=== PATIENT | male | born 1945 | race Caucasian/White ===

== ENCOUNTER 2016-11-11 23:35 | Emergency (ER) | payer MEDICARE, OTHER ==
[2016-11-12 00:25] VITALS: BP 160/82
--- NOTE | 2016-11-12 00:54 | ED ---
Genia Hector Salem, scribed for Adam Zarco MD on 11/12/16 at 0053 . Hypertension - HPI Summary HPI Summary: Patient is a 71 y/o M from [place] who presents to the ED with high BP since earlier today. He states that he woke up this morning with a BUCKLEY and decided to check BP. He reports fluctuations in BP stating that it would go from 150/74 to 179/110 the next minute. Pt is on HTN medication and states that he had his medication altered by his physician (in [place]) 3 weeks ago. Pt is expected to leave [place] tomorrow. - History of Current Complaint Chief Complaint: EDGeneral Stated Complaint: HIGH BLOOD PRESSURE Time Seen by Provider: 11/12/16 00:17 Hx Obtained From: Patient Onset/Duration: Started Hours Ago, Atraumatic, Still Present Timing: Intermittent, Lasting Days Reported Blood Pressure Prior To Arrival: 150/74 to 179/110 Aggravating Factor(s): Nothing Alleviating Factor(s): Nothing Associated Signs & Symptoms: Negative - Allergies/Home Medications Allergies/Adverse Reactions: Allergies Allergy/AdvReac Type Severity Reaction Status Date / Time Iodine Allergy Hives Verified 11/11/16 23:47 contrast dye Allergy Hives/Diff. Uncoded 11/11/16 23:49 Breathing/I tching PMH/Surg Hx/FS Hx/Imm Hx Cardiovascular History: Reports: Hx Hypertension Infectious Disease History: Yes Infectious Disease History: Denies: Traveled Outside the [place] in Last 30 Days - Family History Known Family History: Positive: Hypertension - Social History Lives: With Family Review of Systems Negative: Fever Positive: Other - High BP. Positive: Headache All Other Systems Reviewed And Are Negative: Yes Physical Exam Triage Information Reviewed: Yes Vital Signs On Initial Exam: Initial Vitals Temp Pulse Resp BP Pulse Ox 97.7 F 62 16 154/90 96 11/11/16 23:40 11/11/16 23:40 11/11/16 23:40 11/11/16 23:40 11/11/16 23:40 Vital Signs Reviewed: Yes Appearance: Positive: Well-Appearing, No Pain Distress Skin: Positive: Warm Head/Face: Positive: Normal Head/Face Inspection Eyes: Positive: EOMI, MAGO ENT: Positive: Hearing grossly normal Neck: Positive: Supple Respiratory/Lung Sounds: Positive: Clear to Auscultation, Breath Sounds Present Cardiovascular: Positive: RRR. Negative: Murmur Abdomen Description: Positive: Nontender, Soft Bowel Sounds: Positive: Present Musculoskeletal: Positive: Strength/ROM Intact. Negative: Edema Left, Edema Right Neurological: Positive: Alert, Oriented to Person Place, Time Psychiatric: Positive: Affect/Mood Appropriate Diagnostics - Vital Signs Vital Signs Temp Pulse Resp BP Pulse Ox 11/12/16 00:20 97.8 F 53 18 160/82 96 11/11/16 23:40 97.7 F 62 16 154/90 96 - Laboratory Result Diagrams: 11/12/16 00:48 11/12/16 00:48 Lab Statement: Any lab studies that have been ordered have been reviewed, and results considered in the medical decision making process. - EKG 0057 EKG Interpretation: Sinus bradycardia @ 48 bpm. Poor quality tracing. Hypertension Course/Dx - Course Course Of Treatment: 71 y/o M presents with high BP since earlier today. He states that he woke up this morning with a BUCKLEY and decided to check BP. He reports fluctuations in BP stating that it would go from 150/74 to 179/110 the next minute. Pt is on HTN medication and states that he had his medication altered by his physician (in [place]) 3 weeks ago. EKG shows Sinus bradycardia @ 48 bpm and poor quality tracing. Pt will be DC'd to follow up. - Diagnoses Provider Diagnoses: HTN (hypertension) Discharge - Discharge Plan Condition: Stable Disposition: HOME Patient Education Materials: Hypertension (ED) Referrals: [facility] PHYSICIAN REFERRAL [Outside] Additional Instructions: Please follow up with [facility] referral or your primary care provider. The documentation as recorded by the Genia valera Salem accurately reflects the service I personally performed and the decisions made by , Adam Zarco MD.
[2016-11-12 00:57] LABS: Hematocrit 45 % (42-52); Hemoglobin 14.9 g/dl (14.0-18.0); Mean Corpuscular HGB Conc 33 g/dl (31-36); Mean Corpuscular Hemoglobin 30 pg (27-31); Mean Corpuscular Volume 91 fL (80-94); Mean Platelet Volume 9 um3 (7.4-10.4); Red Blood Count 4.97 10^6/ul (4.0-5.4); Red Cell Distribution Width 14 % (10.5-15); White Blood Count 5.9 10^3/ul (3.5-10.8)
[2016-11-12 01:28] LABS: Albumin 4.1 g/dL (3.2-5.2); Calcium 8.9 mg/dL (8.6-10.3); EGFR African American 83.1 (>60); EGFR Non-African American 64.6 (>60); Globulin 2.6 g/dL (2-4); Potassium 3.7 mmol/L (3.5-5.0); Total Bilirubin 0.4 mg/dL (0.2-1.0); Total Protein 6.7 g/dL (6.4-8.9)
== END 2016-11-12 02:26 | disposition home or self-care (01) ==
LOC: ED 23:35
DX: I10 Essential (primary) hypertension (principal); Z88.3 Allergy status to other anti-infective agents; Z91.041 Radiographic dye allergy status
CPT/HCPCS: 36415; 80053; 85025; 93005; 99282